=== PATIENT | male | born 1930 | race Caucasian/White ===

== ENCOUNTER 2018-11-26 12:15 | Inpatient (IN) | payer MEDICARE ==
[~2018-11-26] VITALS: Ht 175.3 cm; Wt 56.7 kg
[2018-11-26] VITALS (9 sets, daily range): BP systolic 142–173; BP diastolic 53–76
[2018-11-26 12:43] LABS: MCH 33.1 pg (26.0-34.0); MCHC 32.3 g/dL (31.0-37.0); MCV 102.6 fL (80.0-100.0); RDW 23.3 % (11.5-14.5); WBC 7.6 10x3/uL (4.8-10.8)
[2018-11-26 12:48] LABS: RBC 1.51 10x6/uL (4.20-6.10)
[2018-11-26 12:49] LABS: HEMATOCRIT 15.5 % (42.0-54.0)
[2018-11-26 12:50] LABS: PLATELET COUNT 10 10x3/uL (130-400)
[2018-11-26 12:59] LABS: ALKALINE PHOSPHATASE 125 U/L (46-116); ALT (SGPT) 14 U/L (10-68); BILIRUBIN - TOTAL 0.44 mg/dL (0.2-1.3); CALC OSMOLALITY 294 mosm/kg (275-300); CALCIUM 8.2 mg/dL (8.5-10.1); CARBON DIOXIDE 23.2 mmol/L (21.0-32.0); CHLORIDE - SERUM 109 mmol/L (98-107); CREATININE - SERUM 1.8 mg/dL (0.6-1.3); GLUCOSE 114 mg/dL (74-106); POTASSIUM - SERUM 4.1 mmol/L (3.5-5.1); PROTEIN - SERUM 7.7 g/dL (6.4-8.2); SODIUM 143 mmol/L (136-145); UREA NITROGEN 39 mg/dL (7-18); eGFR NON AFRICAN AMERICAN 38 mL/min (90-120)
[2018-11-26] MEDS ORDERED: CAPTOPRIL25 MG PO (13:07)
[2018-11-26] MEDS ORDERED: PLENDIL5 MG PO (13:07)
[2018-11-26 13:10] LABS: CKMB 0.5 U/L (0.0-3.6); CREATINE KINASE 40 UL (21-232)
[2018-11-26 13:12] LABS: TROPONIN-I 0.016 ng/mL (0.000-0.060)
[2018-11-26] MEDS ORDERED: LEVOXYL75 MCG PO (13:34)
[2018-11-26] MEDS ORDERED: OXYBUTYNIN CHLOR5 M1 PO (13:35)
--- NOTE | 2018-11-26 13:40 | NUR ---
OCCULT BLOOD TEST NEGATIVE.
[2018-11-26 13:42] LABS: LYMPHOCYTES 47 % (15-50); MONOCYTES 23 % (2-11); NEUTROPHILS 19 % (40-80)
[2018-11-26 13:43] LABS: ANISOCYTOSIS OCC; HYPOCHROMASIA OCC; PLATELET ESTIMATE DECREASED
--- NOTE | 2018-11-26 13:48 | NUR ---
FIRST UNIT OF BLOOD TRANSFUSION STARTED.
[2018-11-26 19:02] LABS: HEMATOCRIT 22.7 % (42.0-54.0); HEMOGLOBIN 7.6 g/dL (13.5-17.5)
[2018-11-26 19:16] LABS: % SATURATION 101 % (15-55); IRON 194 ug/dl (35-150); TOTAL IRON BIND CAPACITY 192 ug/dl (260-445)
[2018-11-27] VITALS (7 sets, daily range): BP systolic 127–169; BP diastolic 47–84; Ht 175.3 cm; Wt 56.7 kg
--- NOTE | 2018-11-27 00:08 | NUR ---
PT ARRIVED TO THE FLOOR. ALERT AND ORINETED. NO SIGNS OF DISTRESS. BREATHING EVEN AND UNLABORED. PT STATES NO PROBLEMS AT THIS TIME. BOWEL SOUNDS ACTIVE. SKIN CLEAN DRY AND INTACT. AT BEDSIDE. WILL CONTINUE PLAN OF CARE. CALL LIGHT IN REACH. BED LOWERED AND LOCKED. JONATHAN ALARM ON FOR FALL PROCATIONS.
--- NOTE | 2018-11-27 04:38 | NUR ---
I have reviewed this patient and I concur with the Shift Assessment completed by the Licensed Practical Nurse today this shift.
[2018-11-27 07:13] LABS: ANION GAP 11.5 mmol/L (8-16); CARBON DIOXIDE 23.7 mmol/L (21.0-32.0); CREATININE - SERUM 1.5 mg/dL (0.6-1.3); MAGNESIUM - SERUM 2.2 mg/dL (1.8-2.4); PHOSPHOROUS 3.6 mg/dL (2.5-4.9); POTASSIUM - SERUM 4.2 mmol/L (3.5-5.1)
[2018-11-27 07:25] LABS: MCH 32.5 pg (26.0-34.0); MCHC 33.7 g/dL (31.0-37.0); MEAN PLATELET VOLUME 9.9 fL (7.4-10.4); RBC 2.03 10x6/uL (4.20-6.10); RDW 22.4 % (11.5-14.5); WBC 6.1 10x3/uL (4.8-10.8)
[2018-11-27 07:29] LABS: MCV 96.6 fL (80.0-100.0)
[2018-11-27 07:30] LABS: PLATELET COUNT 117 10x3/uL (130-400)
[2018-11-27 07:31] LABS: HEMATOCRIT 19.6 % (42.0-54.0); HEMOGLOBIN 6.6 g/dL (13.5-17.5)
[2018-11-27 08:29] LABS: HYPOCHROMASIA 3+; LYMPHOCYTES 46 % (15-50); MONOCYTES 17 % (2-11); NEUTROPHILS 26 % (40-80); PLATELET ESTIMATE DECREASED
[2018-11-27 08:30] LABS: ANISOCYTOSIS 2+; ROULEAUX 2+
--- NOTE | 2018-11-27 10:04 | NUR ---
PT H&H STILL LOW, ORDERED 2 UNITS OF BLOOD PER TAHIRA AND STARTED FIRST UNIT, U/A ALSO ORDERED. PLACED URINAL IN ROOM AND ADVSIED SPOUSE WE WOULD NEED TO GET A SAMPLE AND TO NOT THROW OUT NEXT VOID, PT SPOUSE VOICED UNDERSTANDING. CONTINUE WITH PLAN OF CARE.
[2018-11-27 11:15] LABS: APPEARANCE CLEAR (CLEAR); BACTERIA MANY /hpf (NONE SEEN); BILIRUBIN NEGATIVE (NEGATIVE); COLOR STRAW (YELLOW); EPITHELIAL CELLS 0-5 /hpf (0-5); GLUCOSE NEGATIVE (NEGATIVE); KETONE NEGATIVE (NEGATIVE); NITRITE NEGATIVE (NEGATIVE); PROTEIN 2+ mg/dL (NEGATIVE); SPECIFIC GRAVITY 1.005 (1.005-1.020); UROBILINOGEN NORMAL (NORMAL)
--- NOTE | 2018-11-27 12:35 | NUR ---
STARTED PT 2ND UNIT OF BLOOD, PT IS AWAKE AND ORIENTED, EATING LUNCH, SON AT BEDSIDE, NO NEEDS VOICED, CONTINUE WITH PLAN OF CARE
[2018-11-27 16:31] LABS: HEMATOCRIT 30.1 % (42.0-54.0); HEMOGLOBIN 10.2 g/dL (13.5-17.5)
--- NOTE | 2018-11-27 18:45 | NUR ---
I have reviewed this patient and I concur with the Shift Assessment completed by the Licensed Practical Nurse today this shift.
--- NOTE | 2018-11-27 18:55 | NUR ---
I have reviewed this patient and I concur with the Shift Assessment completed by the Licensed Practical Nurse today this shift.
--- NOTE | 2018-11-27 20:00 | NUR ---
PT LYING IN BED RESTING WITH EYES CLOSED. AWAKENS TO VERBAL STIMULI. ORIENTED TO SELF. DENIES PAIN OR NEEDS. HAVING PRODUCTIVE COUGH WITH BROWN SPUTUM. LUNG SOUNDS CTA. AT BEDSIDE. BED ALARM. CL IN REACH, WILL CTM
[2018-11-27 23:31] LABS: HEMATOCRIT 27.4 % (42.0-54.0); HEMOGLOBIN 9.4 g/dL (13.5-17.5)
[2018-11-28] VITALS: BP 171/70
[2018-11-28 04:00] VITALS: BP 157/71
--- NOTE | 2018-11-28 04:03 | NUR ---
PT LYING IN BED ASLEEP WITHOUT DISTRESS. AT BEDSIDE, DENIES NEEDS. BED ALARM ON, CL IN REACH. WILL CTM
[2018-11-28 07:06] LABS: BASOPHILS 0.3 % (0-2); EOSINOPHILS 0.4 % (0-7); HEMATOCRIT 28.5 % (42.0-54.0); HEMOGLOBIN 9.6 g/dL (13.5-17.5); IMMATURE GRANULOCYTES 0.9 % (0-5); LYMPHOCYTES 47.4 % (15-50); MCH 30.1 pg (26.0-34.0); MCHC 33.7 g/dL (31.0-37.0); MEAN PLATELET VOLUME 9.6 fL (7.4-10.4); MONOCYTES 30.4 % (2-11); NEUTROPHILS 20.6 % (40-80); RDW 19.8 % (11.5-14.5); WBC 7.6 10x3/uL (4.8-10.8)
[2018-11-28 07:07] LABS: MCV 89.3 fL (80.0-100.0); PLATELET COUNT 64 10x3/uL (130-400); RBC 3.19 10x6/uL (4.20-6.10)
[2018-11-28 07:15] LABS: ALBUMIN 2.7 g/dL (3.4-5.0); BILIRUBIN - TOTAL 1.18 mg/dL (0.2-1.3); CARBON DIOXIDE 21.9 mmol/L (21.0-32.0); CREATININE - SERUM 1.5 mg/dL (0.6-1.3); POTASSIUM - SERUM 3.9 mmol/L (3.5-5.1); PROTEIN - SERUM 6.8 g/dL (6.4-8.2)
[2018-11-28 07:42] LABS: PLATELET ESTIMATE DECREASED
[2018-11-28 09:15] VITALS: BP 164/67
--- NOTE | 2018-11-28 10:27 | NUR ---
PT LYING IN BED, PT SPOUSE STATED HE HAD A RESTFUL NIGHT LAST NIGHT AND ATE A GOOD PART OF HIS BREAKFAST, WENT OVER LAB WORK WITH PATIENT AND SPOUSE AND EXPLAINED THAT WE HAVE ORDERS TO RRANSFUSE IF BLOOD GETS BELOW 8. NO NEEDS VOICED, WILL CONTINUE WITH PLAN OF CARE, CL IN REACH
[2018-11-28 12:35] LABS: HEMOGLOBIN 9.8 g/dL (13.5-17.5)
[2018-11-28 13:10] VITALS: BP 134/58
[2018-11-28 16:22] VITALS: BP 130/52
--- NOTE | 2018-11-28 18:00 | NUR ---
I have reviewed this patient and I concur with the Shift Assessment completed by the Licensed Practical Nurse today this shift.
[2018-11-28 18:07] LABS: HEMATOCRIT 27.5 % (42.0-54.0); HEMOGLOBIN 9.1 g/dL (13.5-17.5)
[2018-11-28 18:20] LABS: APTT 40.3 SECONDS (22.8-39.4); INR 1.3 (0.85-1.17); PROTIME 15.7 SECONDS (11.6-15.0)
--- NOTE | 2018-11-28 19:15 | NUR ---
PT ALERT BUT SLOW TO RESPOND TO QUESTIONS. WEAKNESS NOTED IN UPPER AND LOWER EXTREMEMTIES. ATTENDING CARE AT THIS TIME. BED CHANGED PROVIDED TO PATIENT DUE TO INCONTINENCE. NO IV ACCESS AT THIS TIME. BOTH AND PT DENY FURTHER ISSUES AT THIS TIME. CALL LIGHT IN REACH. CPOC.
[2018-11-28 20:00] VITALS: BP 148/66
[2018-11-29] VITALS: BP 149/65
[2018-11-29 01:16] LABS: HEMATOCRIT 26.8 % (42.0-54.0); HEMOGLOBIN 9.1 g/dL (13.5-17.5)
--- NOTE | 2018-11-29 03:52 | NUR ---
I have reviewed this patient and I concur with the Shift Assessment completed by the Licensed Practical Nurse today this shift.
[2018-11-29 04:00] VITALS: BP 151/63
[2018-11-29 05:47] LABS: HEMATOCRIT 28.2 % (42.0-54.0); HEMOGLOBIN 9.4 g/dL (13.5-17.5); MCH 29.9 pg (26.0-34.0); MCHC 33.3 g/dL (31.0-37.0); MCV 89.8 fL (80.0-100.0); MEAN PLATELET VOLUME 10.3 fL (7.4-10.4); PLATELET COUNT 54 10x3/uL (130-400); RBC 3.14 10x6/uL (4.20-6.10); RDW 19.2 % (11.5-14.5); WBC 6.8 10x3/uL (4.8-10.8)
[2018-11-29 06:08] LABS: ALBUMIN 2.5 g/dL (3.4-5.0); ANION GAP 12.3 mmol/L (8-16); BILIRUBIN - TOTAL 0.74 mg/dL (0.2-1.3); CARBON DIOXIDE 23.7 mmol/L (21.0-32.0); CREATININE - SERUM 1.6 mg/dL (0.6-1.3); PROTEIN - SERUM 6.5 g/dL (6.4-8.2)
--- NOTE | 2018-11-29 07:20 | NUR ---
PATIENT RESTING WITH EYES CLOSED, AT SIDE. PATIENT MADE NPO FOR BONE BIOPSY LATER TODAY. CL IN REACH, SR UP X2
[2018-11-29 07:38] LABS: APTT 43.7 SECONDS (22.8-39.4); INR 1.33 (0.85-1.17); PROTIME 15.9 SECONDS (11.6-15.0)
[2018-11-29 08:40] LABS: ANISOCYTOSIS OCC; LYMPHOCYTES 39 % (15-50); MONOCYTES 17 % (2-11); NEUTROPHILS 15 % (40-80); PLATELET ESTIMATE DECREASED
[2018-11-29 08:46] VITALS: BP 139/62
[2018-11-29 12:08] VITALS: BP 142/65
--- NOTE | 2018-11-29 13:16 | NUR ---
PATIENT STABLE FOLLOWING BONE BIOPSY. DENIES PAIN DRESSING C/D/I
[2018-11-29 14:25] LABS: HEMATOCRIT 27.3 % (42.0-54.0); HEMOGLOBIN 9.1 g/dL (13.5-17.5)
--- NOTE | 2018-11-29 15:18 | NUR ---
NUTRITION F/U SPOUSE AT BEDSIDE. REPORTS PT WITH GOOD INTAKE LATE LUNCH. PT HAD BEEN NPO FOR BIOPSY. WILL CONTINUE TO PROVIDE DIET, MONITOR PO INTAKE. RD FOLLOWING
[2018-11-29 18:09] LABS: HEMATOCRIT 29.3 % (42.0-54.0); HEMOGLOBIN 9.9 g/dL (13.5-17.5)
[2018-11-29 20:00] VITALS: BP 156/58
--- NOTE | 2018-11-29 20:00 | NUR ---
ASSESSMENT PER FLOWSHEET. IV PATENT LEFT FOREARM OF 1/2NS AT 30CC'S/HR SITE CLEAR. SR UP X2 CALL LIGHT WITHIN REACH AT BEDSIDE. TELM. SHOWS SR WITH HR 71.
--- NOTE | 2018-11-29 22:00 | NUR ---
INC URINE PULL UPS CHANGED.
--- NOTE | 2018-11-30 01:00 | NUR ---
LAB DRAWN FOR H&H.
[2018-11-30 01:15] LABS: HEMATOCRIT 26.5 % (42.0-54.0); HEMOGLOBIN 9.1 g/dL (13.5-17.5)
--- NOTE | 2018-11-30 01:41 | NUR ---
RESULTS OF H&H ARE 9.1/26.5. NO BLOOD NEEDED AT THIS TIME.
[2018-11-30 04:00] VITALS: BP 159/66
[2018-11-30 06:16] LABS: BASOPHILS 0.2 % (0-2); EOSINOPHILS 0.2 % (0-7); HEMATOCRIT 25.9 % (42.0-54.0); HEMOGLOBIN 8.7 g/dL (13.5-17.5); IMMATURE GRANULOCYTES 21.8 % (0-5); LYMPHOCYTES 38.9 % (15-50); MCH 30.2 pg (26.0-34.0); MCHC 33.6 g/dL (31.0-37.0); MCV 89.9 fL (80.0-100.0); MEAN PLATELET VOLUME 9.6 fL (7.4-10.4); MONOCYTES 14.9 % (2-11); RBC 2.88 10x6/uL (4.20-6.10); RDW 18.6 % (11.5-14.5); WBC 5.8 10x3/uL (4.8-10.8)
[2018-11-30 06:36] LABS: ALBUMIN 2.3 g/dL (3.4-5.0); ANION GAP 14.4 mmol/L (8-16); BILIRUBIN - TOTAL 0.62 mg/dL (0.2-1.3); CARBON DIOXIDE 23.7 mmol/L (21.0-32.0); CREATININE - SERUM 1.4 mg/dL (0.6-1.3); POTASSIUM - SERUM 4.1 mmol/L (3.5-5.1); PROTEIN - SERUM 6.4 g/dL (6.4-8.2)
[2018-11-30 06:43] LABS: PLATELET COUNT 34 10x3/uL (130-400)
--- NOTE | 2018-11-30 07:10 | NUR ---
AWAKENS INT. PT IS WITHOUT DISTRESS. AT BEDSIDE.MONITOR
[2018-11-30 08:36] VITALS: BP 164/66
--- NOTE | 2018-11-30 09:00 | NUR ---
ASSESSMENT PER FLOW SHEET. PT IS WITHOUT DISTRESS.MONITOR FOR NEEDS
[2018-11-30 12:47] LABS: HEMATOCRIT 26.5 % (42.0-54.0); HEMOGLOBIN 8.9 g/dL (13.5-17.5)
--- NOTE | 2018-11-30 13:15 | NUR ---
PLATELET INFUSION COMPLETE. VSS. SEE TRANSFUSION CARD. PT DENIES FURTHER NEEDS. BED IS IN THE LOWEST POSITION. CALL LIGHT AND BEDSIDE TABLE ARE WITHIN REACH.
--- NOTE | 2018-11-30 13:43 | NUR ---
OT NOTE: ATTEMPTED EVAL HOWEVER, PT JUST RECEIVING PLATELETTS. WILL RE ATTEMPT TOMORROW. MARTY JARAMILLO, OTR/L
--- NOTE | 2018-11-30 16:06 | NUR ---
PT REMAINS WITHOUT DISTRESS. FAMILY AT BEDSIDE.DENIES NEEDS.
--- NOTE | 2018-11-30 17:23 | NUR ---
REMAINS WITHOUT NEEDS. AT BEDSIDE
[2018-11-30 17:36] VITALS: BP 147/66
[2018-11-30 18:39] LABS: HEMATOCRIT 25.7 % (42.0-54.0); HEMOGLOBIN 8.8 g/dL (13.5-17.5)
[2018-11-30 20:00] VITALS: BP 141/57
--- NOTE | 2018-11-30 20:00 | NUR ---
ASSESSMENT PER FLOWSHEET. IV SALINE LOCKED TO LT FOREARM. TELM. SHOWS SR WITH HR 63-64. IN ROOM. BED ALARM ON.
--- NOTE | 2018-11-30 22:00 | NUR ---
INC URINE CLEANED AND DRIED. REPOSTIONED IN BED.
--- NOTE | 2018-12-01 00:08 | NUR ---
EYES CLOSED RESPIRATIONS WITH EASE AND UNLABORED.
[2018-12-01 04:00] VITALS: BP 163/74
--- NOTE | 2018-12-01 04:45 | NUR ---
AWAKE HID=692.2 TYLENOL 650MG PO GIVEN FOR FEVER MEASURES.
[2018-12-01 05:22] LABS: HEMATOCRIT 27.2 % (42.0-54.0); HEMOGLOBIN 9.2 g/dL (13.5-17.5); MCH 30.1 pg (26.0-34.0); MCHC 33.8 g/dL (31.0-37.0); MCV 88.9 fL (80.0-100.0); MEAN PLATELET VOLUME 9.9 fL (7.4-10.4); RBC 3.06 10x6/uL (4.20-6.10); RDW 18.4 % (11.5-14.5)
[2018-12-01 05:27] LABS: PLATELET COUNT 88 10x3/uL (130-400)
[2018-12-01 05:33] LABS: ALBUMIN 2.5 g/dL (3.4-5.0); ANION GAP 12.6 mmol/L (8-16); BILIRUBIN - TOTAL 0.65 mg/dL (0.2-1.3); CALCIUM 8.2 mg/dL (8.5-10.1); CARBON DIOXIDE 25.3 mmol/L (21.0-32.0); CREATININE - SERUM 1.4 mg/dL (0.6-1.3); POTASSIUM - SERUM 3.9 mmol/L (3.5-5.1); PROTEIN - SERUM 6.7 g/dL (6.4-8.2)
[2018-12-01 05:57] LABS: EOSINOPHILS 2 % (0-7); LYMPHOCYTES 65 % (15-50); MONOCYTES 3 % (2-11); NEUTROPHILS 23 % (40-80); PLATELET ESTIMATE DECREASED
--- NOTE | 2018-12-01 08:00 | NUR ---
PATIENT IN BED WITH EYES CLOSED RESTING QUIETLY. NO COMPLAINTS OR SIGNS OF DISTRESS. CALL LIGHT WITHIN REACH.
[2018-12-01 08:55] VITALS: BP 174/59
[2018-12-01 13:57] VITALS: BP 185/82
--- NOTE | 2018-12-01 14:14 | MORECARE ---
CASE MANAGEMENT DISCHARGE SUMMARY PATIENT: HELDER MACHUCA UNIT: [id number] ADM DATE: 11/26/18 AGE: 87 : [birth year] SEX: M ROOM/BED: D.2215 AUTHOR: SAMANTHA MERINO PHYSICIAN: REFERRING PHYSICIAN: TYLER SALMON MD DATE OF SERVICE: 12/01/18 Discharge Plan Patient Name: HELDER MACHUCA Facility: [facility]:[place] : 1930 Planned Disposition: Home with Home Health Anticipated Discharge Date: Discharge Date: Expected LOS: Initial Reviewer: [email or web address] Initial Review Date: 11/26/2018 Generated: 12/01/18 3:14 pm DCPIA - Discharge Planning Initial Assessment Updated by [email or web address]: Jennifer Troy on 12/01/18 2:12 pm * Is the patient Alert and Oriented? Yes * How many steps to enter\exit or inside your home? * PCP MARIO * [facility] * Preadmission Environment Home with Family * ADLs Partial Dependent * Partial ADLs (Assistance needed) Ambulation Bathing Medication Management * Equipment Rolling Walker Shower Chair * Other Equipment TRANSPORT CHAIR * List name and contact numbers for known caregivers / representatives who currently or will assist patient after discharge: ROB [phone] * Verbal permission to speak to the caregivers and representatives has been obtained from the patient. Yes * Community resources currently utilized Home Health * Please name any agencies selected above. [facility] * Additional services required to return to the preadmission environment? No * Can the patient safely return to the preadmission environment? Yes * Has this patient been hospitalized within the prior 30 days at any hospital? No Patient Name: HELDER MACHUCA Page [phone] at 1414 All edits/amendments must be made on the electronic document DICTATION DATE: 12/01/181412 PREDICTIVE MAINTENANCE TECHNICIAN: ARACELIS 12/01/181412 RPT#: [id number] DC DATE: STATUS: ADM IN [facility] [address] [place] [address] END OF REPORT
--- NOTE | 2018-12-01 14:23 | MORECARE ---
CASE MANAGEMENT DISCHARGE SUMMARY PATIENT: HELDER MACHUCA UNIT: [id number] ADM DATE: 11/26/18 AGE: 87 : [birth year] SEX: M ROOM/BED: D.2215 AUTHOR: WILBERDOC PHYSICIAN: REFERRING PHYSICIAN: TYLER SALMON MD DATE OF SERVICE: 12/01/18 Discharge Plan Patient Name: HELDER MACHUCA Facility: [facility]:[place] : 1930 Planned Disposition: Home with Home Health Anticipated Discharge Date: Discharge Date: Expected LOS: Initial Reviewer: [email or web address] Initial Review Date: 11/26/2018 Generated: 12/01/18 3:23 pm Comments DCP- Discharge Planning Updated by [email or web address]: Jennifer Troy on 12/01/18 1:[address] Patient Name: HELDER MACHUCA Admission Status: ER Accout number: [id number] Admission Date: 11-26-2018 : 1930 Admission Diagnosis:THROMBOCYTOPENIA, UNSPECIFIED Attending: TYLER PAYAN Current LOS: 5 Anticipated DC Date: Planned Disposition: Home with Home Health Primary Insurance: AETNA MEDICARE PPO or HMO Discharge Planning Comments: CM met with patient & Rob to complete initial dc planning assessment. CM educated patient on the CM role and verbal consent given by patient to complete assessment. Patient lives at home with his where he is partially dependent with medications, ambulation, and bathing. At discharge patient plans to return home and feels this is a safe discharge. CM discussed availability of home health, rehab services, and medical equipment. He is current with [facility] (KARINA signed) He has a walker, shower chair and walker. Patient denied known discharge needs at this time. CM will continue to follow and will assist as needed with dc plans/needs. Body Die Maker: Jennifer Troy DCPIA - Discharge Planning Initial Assessment Updated by [id number]: Jennifer Troy on 12/01/18 2:12 pm * Is the patient Alert and Oriented? Yes * How many steps to enter\exit or inside your home? * PCP MARIO * Pharmacy [facility] * Preadmission Environment Home with Family * ADLs Partial Dependent * Partial ADLs (Assistance needed) Ambulation Bathing Medication Management * Equipment Rolling Walker Shower Chair * Other Equipment TRANSPORT CHAIR * List name and contact numbers for known caregivers / representatives who currently or will assist patient after discharge: ROB [phone] * Verbal permission to speak to the caregivers and representatives has been obtained from the patient. Yes * Community resources currently utilized Home Health * Please name any agencies selected above. [facility] * Additional services required to return to the preadmission environment? No * Can the patient safely return to the preadmission environment? Yes * Has this patient been hospitalized within the prior 30 days at any hospital? No Coverage Notice Reviewer: [id number] Jessi Troy Notice Issued Date-Time: 12/01/2018 8:30 Notice Type: Patient Choice Letter Notice Delivered To: Patient Relationship to Patient: Spouse Surgery Manager Name: rob Delivery Method: - Tita Days: Prior Verbal Notification: Recipient Understood Notice: Yes Recipient Signature: Yes Med Rec Note Co-signed by Attending: Coverage Notice Comment: karina with leesa Last DP export: 12/01/18 1:14 p Patient Name: HELDER MACHUCA Page [phone] at 1423 All edits/amendments must be made on the electronic document DICTATION DATE: 12/01/181421 FURNACE PROCESS PLANT OPERATOR: ARACELIS 12/01/181421 RPT#: [id number] DC DATE: STATUS: ADM IN [facility] [address] [place] [address] END OF REPORT
--- NOTE | 2018-12-01 15:56 | NUR ---
OT NOTE: PT REQUIRED MAX A FOR BED MOB TASKS. PT COMPLETED EOB SITTING WITH MAX A. PT COMPLETED GROOMING AND HYGIENE TASKS WITH MOD/MAX A. THANK YOU, REX GIRARD
[2018-12-01 16:24] VITALS: BP 192/64
--- NOTE | 2018-12-01 16:31 | MORECARE ---
CASE MANAGEMENT DISCHARGE SUMMARY PATIENT: HELDER MACHUCA UNIT: [id number] ADM DATE: 11/26/18 AGE: 87 : [birth year] SEX: M ROOM/BED: D.2215 AUTHOR: WILBERDOC PHYSICIAN: REFERRING PHYSICIAN: TYLER SALMON MD DATE OF SERVICE: 12/01/18 Discharge Plan Patient Name: HELDER MACHUCA Facility: [facility]:[place] : 1930 Planned Disposition: Home with Home Health Anticipated Discharge Date: Discharge Date: Expected LOS: Initial Reviewer: [email or web address] Initial Review Date: 11/26/2018 Generated: 12/01/18 5:30 pm Comments DCP- Discharge Planning Updated by [id number]: Jennifer Troy on 12/01/18 1:[address] Patient Name: HELDER MACHUCA Admission Status: ER Accout number: [id number] Admission Date: 11-26-2018 : 1930 Admission Diagnosis:THROMBOCYTOPENIA, UNSPECIFIED Attending: TYLER PAYAN Current LOS: 5 Anticipated DC Date: Planned Disposition: Home with Home Health Primary Insurance: AETNA MEDICARE PPO or HMO Discharge Planning Comments: CM met with patient & Rob to complete initial dc planning assessment. CM educated patient on the CM role and verbal consent given by patient to complete assessment. Patient lives at home with his where he is partially dependent with medications, ambulation, and bathing. At discharge patient plans to return home and feels this is a safe discharge. CM discussed availability of home health, rehab services, and medical equipment. He is current with [facility] (KARINA signed) He has a walker, shower chair and walker. Patient denied known discharge needs at this time. CM will continue to follow and will assist as needed with dc plans/needs. Arrt Technologist: Jennifer Troy DCPIA - Discharge Planning Initial Assessment Updated by [email or web address]: Jennifer Troy on 12/01/18 2:12 pm * Is the patient Alert and Oriented? Yes * How many steps to enter\exit or inside your home? * PCP MARIO * Pharm[facility] * Preadmission Environment Home with Family * ADLs Partial Dependent * Partial ADLs (Assistance needed) Ambulation Bathing Medication Management * Equipment Rolling Walker Shower Chair * Other Equipment TRANSPORT CHAIR * List name and contact numbers for known caregivers / representatives who currently or will assist patient after discharge: ROB [phone] * Verbal permission to speak to the caregivers and representatives has been obtained from the patient. Yes * Community resources currently utilized Home Health * Please name any agencies selected above. [facility] * Additional services required to return to the preadmission environment? No * Can the patient safely return to the preadmission environment? Yes * Has this patient been hospitalized within the prior 30 days at any hospital? No External Providers External Provider: [facility] Next Contact Date: Service Request Date: Service Type: Resolution: Reviewer: Comments: Coverage Notice Reviewer: [id number] Jessi Troy Notice Issued Date-Time: 12/01/2018 8:30 Notice Type: Patient Choice Letter Notice Delivered To: Patient Relationship to Patient: Spouse Claims Administrator Name: rob Delivery Method: - Tita Days: Prior Verbal Notification: Recipient Understood Notice: Yes Recipient Signature: Yes Med Rec Note Co-signed by Attending: Coverage Notice Comment: karina with leesa Last DP export: 12/01/18 1:23 p Patient Name: HELDER MACHUCA Page [phone] at 1631 All edits/amendments must be made on the electronic document DICTATION DATE: 12/01/18 1630 BOBBIN WINDER TENDER: ARACELIS 12/01/18 1630 RPT#: [id number] DC DATE: STATUS: ADM IN [facility] [address] [place] [address] END OF REPORT
--- NOTE | 2018-12-01 16:38 | MORECARE ---
CASE MANAGEMENT DISCHARGE SUMMARY PATIENT: HELDER MACHUCA UNIT: [id number] ADM DATE: 11/26/18 AGE: 87 : [birth year] SEX: M ROOM/BED: D.2215 AUTHOR: SAMANTHA MERINO PHYSICIAN: REFERRING PHYSICIAN: TYLER SALMON MD DATE OF SERVICE: 12/01/18 Discharge Plan Patient Name: HELDER MACHUCA Facility: [facility]:[place] : 1930 Planned Disposition: Home with Home Health Anticipated Discharge Date: Discharge Date: Expected LOS: Initial Reviewer: [email or web address] Initial Review Date: 11/26/2018 Generated: 12/01/18 5:38 pm Comments DCP- Discharge Planning Updated by [email or web address]: Jennifer Troy on 12/01/18 3:[address] ORDER RECEIVED FOR HOSPICE CONSULT, SPOKE WITH PATIENT'S AND SON AT LENGTH AND THEY WOULD LIKE TO USE [facility] AND GO HOME WITH [facility]. KARINA SIGNED AND PLACED IN CHART. I CALLED [facility] AND SENT THE REFERRAL, THE FAMILY WOULD LIKE TO MEET TOMORROW 12/02 @ 0900 AM. [facility] WILL BE HERE TOMORROW AND VISIT WITH FAMILY. CM TO FOLLOW AND ASSIST WITH DC PLANNING DCP- Discharge Planning Updated by [email or web address]: Jennifer Troy on 12/01/18 1:[address] Patient Name: HELDER MACHUCA Admission Status: ER Accout number: [id number] Admission Date: 11-26-2018 : 1930 Admission Diagnosis:THROMBOCYTOPENIA, UNSPECIFIED Attending: TYLER PAYAN Current LOS: 5 Anticipated DC Date: Planned Disposition: Home with Home Health Primary Insurance: AETNA MEDICARE PPO or HMO Discharge Planning Comments: CM met with patient & Rob to complete initial dc planning assessment. CM educated patient on the CM role and verbal consent given by patient to complete assessment. Patient lives at home with his where he is partially dependent with medications, ambulation, and bathing. At discharge patient plans to return home and feels this is a safe discharge. CM discussed availability of home health, rehab services, and medical equipment. He is current with [facility] (KARINA signed) He has a walker, shower chair and walker. Patient denied known discharge needs at this time. CM will continue to follow and will assist as needed with dc plans/needs. Service Desk Agent: Jennifer Troy DCPIA - Discharge Planning Initial Assessment Updated by [email or web address]: Jennifer Troy on 12/01/18 2:12 pm * Is the patient Alert and Oriented? Yes * How many steps to enter\exit or inside your home? * PCP MARIO * [facility] * Preadmission Environment Home with Family * ADLs Partial Dependent * Partial ADLs (Assistance needed) Ambulation Bathing Medication Management * Equipment Rolling Walker Shower Chair * Other Equipment TRANSPORT CHAIR * List name and contact numbers for known caregivers / representatives who currently or will assist patient after discharge: ROB [phone] * Verbal permission to speak to the caregivers and representatives has been obtained from the patient. Yes * Community resources currently utilized Home Health * Please name any agencies selected above. [facility] * Additional services required to return to the preadmission environment? No * Can the patient safely return to the preadmission environment? Yes * Has this patient been hospitalized within the prior 30 days at any hospital? No External Providers External Provider: [facility] *(provides in[facility] Next Contact Date: Service Request Date: Service Type: Resolution: Reviewer: Comments: Coverage Notice Reviewer: [id number] Jessi Troy Notice Issued Date-Time: 12/01/2018 8:30 Notice Type: Patient Choice Letter Notice Delivered To: Patient Relationship to Patient: Spouse Medical Management Specialist Name: rob Delivery Method: - Tita Days: Prior Verbal Notification: Recipient Understood Notice: Yes Recipient Signature: Yes Med Rec Note Co-signed by Attending: Coverage Notice Comment: karina with [place] Reviewer: [id number] - Jennifer Troy Notice Issued Date-Time: 12/01/2018 16:15 Notice Type: Patient Choice Letter Notice Delivered To: Family Member Relationship to Patient: Spouse Medical Management Specialist Name: ROB Delivery Method: - Tita Days: Prior Verbal Notification: Recipient Understood Notice: Recipient Signature: Med Rec Note Co-signed by Attending: Coverage Notice Comment: Last DP export: 12/01/18 3:31 p Patient Name: HELDER MACHUCA Page [id number] at 1638 All edits/amendments must be made on the electronic document DICTATION DATE: 12/01/181637 KILN FIRER HELPER: ARACELIS 12/01/181637 RPT#: [id number] DC DATE: STATUS: ADM IN [facility] [address] [place] [address] END OF REPORT
--- NOTE | 2018-12-01 18:22 | NUR ---
PATIENT IN BED WITH EYES CLOSED RESTING QUIETLY. IV INTACT. BED ALARM ON. FAMILY AT BEDSIDE. CALL LIGHT WITHIN REACH.
--- NOTE | 2018-12-01 20:00 | NUR ---
ASSESSMENT PER FLOWSHEET. IN ROOM SALINE LOCK TO LT FOREARM. JONATHAN MAT IN PLACE INC URINE LINENS CHANGED.
[2018-12-01 21:15] VITALS: BP 147/67
--- NOTE | 2018-12-01 21:42 | NUR ---
WUCL=036.2 TYLENOL 650MG PO GIVEN FOR ELEVATED TEMP.
--- NOTE | 2018-12-01 23:52 | NUR ---
EYES CLOSED RESPIRATIONS WITH EASE AND UNLABORED.
[2018-12-02 01:38] VITALS: BP 154/60
[2018-12-02 05:11] VITALS: BP 124/80
[2018-12-02 05:35] LABS: ALBUMIN 2.4 g/dL (3.4-5.0); ANION GAP 13.1 mmol/L (8-16); BILIRUBIN - TOTAL 0.52 mg/dL (0.2-1.3); CALCIUM 8.2 mg/dL (8.5-10.1); CARBON DIOXIDE 24.8 mmol/L (21.0-32.0); CREATININE - SERUM 1.6 mg/dL (0.6-1.3); POTASSIUM - SERUM 3.9 mmol/L (3.5-5.1); PROTEIN - SERUM 6.7 g/dL (6.4-8.2)
[2018-12-02 06:32] LABS: BASOPHILS 0.2 % (0-2); EOSINOPHILS 0.6 % (0-7); IMMATURE GRANULOCYTES 1.6 % (0-5); LYMPHOCYTES 53.1 % (15-50); MCH 29.8 pg (26.0-34.0); MCHC 33.3 g/dL (31.0-37.0); MCV 89.4 fL (80.0-100.0); MEAN PLATELET VOLUME 10.4 fL (7.4-10.4); MONOCYTES 33.1 % (2-11); NEUTROPHILS 11.4 % (40-80); RBC 3.02 10x6/uL (4.20-6.10); RDW 18.4 % (11.5-14.5)
[2018-12-02 06:35] LABS: PLATELET COUNT 64 10x3/uL (130-400)
--- NOTE | 2018-12-02 07:44 | NUR ---
PT RESTING IN BED. CHEST RISING AND FALLING. AT BEDSIDE. NO S/S OF ACUTE DISTRESS. CL IN PLACE.
[2018-12-02 08:30] VITALS: BP 171/77
--- NOTE | 2018-12-02 08:45 | NUR ---
CHANGED AND TURNED PT TO R SIDE. PT IN WANTING TO WORK WITH PT. PT UP TO CHAIR. AT BEDSIDE. NO S/S OF ACUTE DISTRESS. CL IN PLACE.
--- NOTE | 2018-12-02 10:55 | MORECARE ---
CASE MANAGEMENT DISCHARGE SUMMARY PATIENT: HELDER MACHUCA UNIT: [id number] ADM DATE: 11/26/18 AGE: 87 : [birth year] SEX: M ROOM/BED: D.2215 AUTHOR: WILBER,SAMANTHA PHYSICIAN: REFERRING PHYSICIAN: TYLER SALMON MD DATE OF SERVICE: 12/02/18 Discharge Plan Patient Name: HELDER MACHUCA Facility: [facility]:[place] : 1930 Planned Disposition: Home with Home Health Anticipated Discharge Date: Discharge Date: Expected LOS: Initial Reviewer: [email or web address] Initial Review Date: 11/26/2018 Generated: 12/02/18 11:55 am Comments DCP- Discharge Planning Updated by [email or web address]: Jennifer Troy on 12/02/18 9:[address] Ez with [facility] has met with family and they will accept him. They are getting DME set up at the home and when that is done she will call me for a DC order. CM to follow and assist as needed DCP- Discharge Planning Updated by [email or web address]: Jennifer Troy on 12/01/18 3:[address] ORDER RECEIVED FOR HOSPICE CONSULT, SPOKE WITH PATIENT'S AND SON AT LENGTH AND THEY WOULD LIKE TO USE [facility] AND GO HOME WITH [facility]. KARINA SIGNED AND PLACED IN CHART. I CALLED [facility] AND SENT THE REFERRAL, THE FAMILY WOULD LIKE TO MEET TOMORROW 12/02 @ 0900 AM. [facility] WILL BE HERE TOMORROW AND VISIT WITH FAMILY. CM TO FOLLOW AND ASSIST WITH DC PLANNING DCP- Discharge Planning Updated by [id number]: Jennifer Troy on 12/01/18 1:[address] Patient Name: HELDER MACHUCA Admission Status: ER Accout number: [id number] Admission Date: 11-26-2018 : 1930 Admission Diagnosis:THROMBOCYTOPENIA, UNSPECIFIED Attending: TYLER PAYAN Current LOS: 5 Anticipated DC Date: Planned Disposition: Home with Home Health Primary Insurance: AETNA MEDICARE PPO or HMO Discharge Planning Comments: CM met with patient & Rob to complete initial dc planning assessment. CM educated patient on the CM role and verbal consent given by patient to complete assessment. Patient lives at home with his where he is partially dependent with medications, ambulation, and bathing. At discharge patient plans to return home and feels this is a safe discharge. CM discussed availability of home health, rehab services, and medical equipment. He is current with [facility] (KARINA signed) He has a walker, shower chair and walker. Patient denied known discharge needs at this time. CM will continue to follow and will assist as needed with dc plans/needs. Cigar Head Pegger: Jennifer Troy DCPIA - Discharge Planning Initial Assessment Updated by [id number]: Jennifer Troy on 12/01/18 2:12 pm * Is the patient Alert and Oriented? Yes * How many steps to enter\exit or inside your home? * PCP MARIO * [facility] * Preadmission Environment Home with Family * ADLs Partial Dependent * Partial ADLs (Assistance needed) Ambulation Bathing Medication Management * Equipment Rolling Walker Shower Chair * Other Equipment TRANSPORT CHAIR * List name and contact numbers for known caregivers / representatives who currently or will assist patient after discharge: ROB [phone] * Verbal permission to speak to the caregivers and representatives has been obtained from the patient. Yes * Community resources currently utilized Home Health * Please name any agencies selected above. [facility] * Additional services required to return to the preadmission environment? No * Can the patient safely return to the preadmission environment? Yes * Has this patient been hospitalized within the prior 30 days at any hospital? No Coverage Notice Reviewer: [email or web address] Jessi Troy Notice Issued Date-Time: 12/01/2018 8:30 Notice Type: Patient Choice Letter Notice Delivered To: Patient Relationship to Patient: Spouse Boiler Service Technician Name: rob Delivery Method: - Tita Days: Prior Verbal Notification: Recipient Understood Notice: Yes Recipient Signature: Yes Med Rec Note Co-signed by Attending: Coverage Notice Comment: kairna with leesa Reviewer: [id number] Jessi Troy Notice Issued Date-Time: 12/01/2018 16:15 Notice Type: Patient Choice Letter Notice Delivered To: Family Member Relationship to Patient: Spouse Boiler Service Technician Name: ROB Delivery Method: - Tita Days: Prior Verbal Notification: Recipient Understood Notice: Recipient Signature: Med Rec Note Co-signed by Attending: Coverage Notice Comment: Last DP export: 12/01/18 3:38 p Patient Name: HELDER MACHUCA Page 47049 at 1055 All edits/amendments must be made on the electronic document DICTATION DATE: 12/02/18 1055 ECONOMIC DEVELOPMENT SPECIALIST: ARACELIS 12/02/18 1055 RPT#: [id number] DC DATE: STATUS: ADM IN [facility] [address] [place] [address] END OF REPORT
--- NOTE | 2018-12-02 11:24 | NUR ---
OT NOTE: PT VERY WEAK; ATTEMPTING TO FEED PT THIS MORNING STATING THAT HE WONT EAT UNLESS SHE HELPS HIM. ASSISTED PT TO EOB WITH MAX ASSIST; MOD/MAX ASSIST WITH STATIC SITTING BALANCE AND SCOOTING TO EOB; MAX ASSIST TO GERALD SOCK; MAX ASSIST FOR TRANSFER FROM BED TO CHAIR. POSITIONED PT FOR COMFORT. MARTY JARAMILLO, OTR/L
[2018-12-02 13:34] VITALS: BP 157/55
--- NOTE | 2018-12-02 13:50 | MORECARE ---
CASE MANAGEMENT DISCHARGE SUMMARY PATIENT: HELDER MACHUCA UNIT: [id number] ADM DATE: 11/26/18 AGE: 87 : [birth year] SEX: M ROOM/BED: D.2215 AUTHOR: SAMANTHA MERINO PHYSICIAN: REFERRING PHYSICIAN: TYLER SALMON MD DATE OF SERVICE: 12/02/18 Discharge Plan Patient Name: HELDER MACHUCA Facility: [facility]:[place] : 1930 Planned Disposition: Home with Home Health Anticipated Discharge Date: Discharge Date: Expected LOS: Initial Reviewer: [id number] Initial Review Date: 11/26/2018 Generated: 12/02/18 2:50 pm Comments DCP- Discharge Planning Updated by [email or web address]: Jennifer Troy on 12/02/18 9:[address] Ez with [facility] has met with family and they will accept him. They are getting DME set up at the home and when that is done she will call me for a DC order. CM to follow and assist as needed DCP- Discharge Planning Updated by [email or web address]: Jennifer Troy on 12/01/18 3:[address] ORDER RECEIVED FOR HOSPICE CONSULT, SPOKE WITH PATIENT'S AND SON AT LENGTH AND THEY WOULD LIKE TO USE [facility] AND GO HOME WITH [facility]. KARINA SIGNED AND PLACED IN CHART. I CALLED [facility] AND SENT THE REFERRAL, THE FAMILY WOULD LIKE TO MEET TOMORROW 12/02 @ 0900 AM. [facility] WILL BE HERE TOMORROW AND VISIT WITH FAMILY. CM TO FOLLOW AND ASSIST WITH DC PLANNING DCP- Discharge Planning Updated by [id number]: Jennifer Troy on 12/01/18 1:[address] Patient Name: HELDER MACHUCA Admission Status: ER Accout number: [id number] Admission Date: 11-26-2018 : 1930 Admission Diagnosis:THROMBOCYTOPENIA, UNSPECIFIED Attending: TYLER PAYAN Current LOS: 5 Anticipated DC Date: Planned Disposition: Home with Home Health Primary Insurance: AETNA MEDICARE PPO or HMO Discharge Planning Comments: CM met with patient & Rob to complete initial dc planning assessment. CM educated patient on the CM role and verbal consent given by patient to complete assessment. Patient lives at home with his where he is partially dependent with medications, ambulation, and bathing. At discharge patient plans to return home and feels this is a safe discharge. CM discussed availability of home health, rehab services, and medical equipment. He is current with [facility] (KARINA signed) He has a walker, shower chair and walker. Patient denied known discharge needs at this time. CM will continue to follow and will assist as needed with dc plans/needs. Sand Analyst: Jennifer Troy DCPIA - Discharge Planning Initial Assessment Updated by [id number]: Jennifer Troy on 12/01/18 2:12 pm * Is the patient Alert and Oriented? Yes * How many steps to enter\exit or inside your home? * PCP MARIO * Pharmacy [facility] * Preadmission Environment Home with Family * ADLs Partial Dependent * Partial ADLs (Assistance needed) Ambulation Bathing Medication Management * Equipment Rolling Walker Shower Chair * Other Equipment TRANSPORT CHAIR * List name and contact numbers for known caregivers / representatives who currently or will assist patient after discharge: ROB [phone] * Verbal permission to speak to the caregivers and representatives has been obtained from the patient. Yes * Community resources currently utilized Home Health * Please name any agencies selected above. [facility] * Additional services required to return to the preadmission environment? No * Can the patient safely return to the preadmission environment? Yes * Has this patient been hospitalized within the prior 30 days at any hospital? No Coverage Notice Reviewer: [id number] Jessi Troy Notice Issued Date-Time: 12/01/2018 8:30 Notice Type: Patient Choice Letter Notice Delivered To: Patient Relationship to Patient: Spouse V Belt Mold Assembler And Curer Name: rob Delivery Method: - Tita Days: Prior Verbal Notification: Recipient Understood Notice: Yes Recipient Signature: Yes Med Rec Note Co-signed by Attending: Coverage Notice Comment: karina with leesa Reviewer: [id number] Jessi Troy Notice Issued Date-Time: 12/01/2018 16:15 Notice Type: Patient Choice Letter Notice Delivered To: Family Member Relationship to Patient: Spouse V Belt Mold Assembler And Curer Name: ROB Delivery Method: - Tita Days: Prior Verbal Notification: Recipient Understood Notice: Recipient Signature: Med Rec Note Co-signed by Attending: Coverage Notice Comment: Reviewer: [id number] - Jennifer Troy Notice Issued Date-Time: 12/02/2018 13:40 Notice Type: IM Discharge Notice Notice Delivered To: Family Member Relationship to Patient: Spouse V Belt Mold Assembler And Curer Name: rob Delivery Method: HAND - Hand Delivered Tita Days: Prior Verbal Notification: Recipient Understood Notice: Yes Recipient Signature: Yes Med Rec Note Co-signed by Attending: Coverage Notice Comment: Last DP export: 12/02/18 9:55 am Patient Name: HELDER MACHUCA Page [id number] at 1350 All edits/amendments must be made on the electronic document DICTATION DATE: 12/02/18 1349 SQL SERVER BI DEVELOPER: ARACELIS 12/02/18 1349 RPT#: [id number] DC DATE: STATUS: ADM IN [facility] [address] [place] [address] END OF REPORT
--- NOTE | 2018-12-02 14:00 | MORECARE ---
CASE MANAGEMENT DISCHARGE SUMMARY PATIENT: HELDER MACHUCA UNIT: [id number] ADM DATE: 11/26/18 AGE: 87 : [birth year] SEX: M ROOM/BED: D.2215 AUTHOR: WILBER,DOC PHYSICIAN: REFERRING PHYSICIAN: TYLER SALMON MD DATE OF SERVICE: 12/02/18 Discharge Plan Patient Name: HELDER MACHUCA Facility: [facility]:[place] : 1930 Planned Disposition: Home with Home Health Anticipated Discharge Date: Discharge Date: Expected LOS: Initial Reviewer: [email or web address] Initial Review Date: 11/26/2018 Generated: 12/02/18 3:00 pm Comments DCP- Discharge Planning Updated by [email or web address]: Jennifer Troy on 12/02/18 12:[address] PATIENT WILL BE DISCHARGING HOME WITH [facility] HE WILL TRANSPORT VIA EMS. AT BEDSIDE AND IS AWARE, DME IS SET UP AND DELIVERED TO THE HOME. IMM WAS EXPLAINED AND COPY GIVEN TO . CM WILL CONTINUE TO FOLLOW AND ASSIST NEEDED. DCP- Discharge Planning Updated by [email or web address]: Jennifer Troy on 12/02/18 9:[address] Ez with [facility] has met with family and they will accept him. They are getting DME set up at the home and when that is done she will call me for a DC order. CM to follow and assist as needed DCP- Discharge Planning Updated by [id number]: Jennifer Troy on 12/01/18 3:[address] ORDER RECEIVED FOR HOSPICE CONSULT, SPOKE WITH PATIENT'S AND SON AT LENGTH AND THEY WOULD LIKE TO USE [facility] AND GO HOME WITH [facility]. KARINA SIGNED AND PLACED IN CHART. I CALLED [facility] AND SENT THE REFERRAL, THE FAMILY WOULD LIKE TO MEET TOMORROW 12/02 @ 0900 AM. [facility] WILL BE HERE TOMORROW AND VISIT WITH FAMILY. CM TO FOLLOW AND ASSIST WITH DC PLANNING DCP- Discharge Planning Updated by [id number]: Jennifer Troy on 12/01/18 1:[address] Patient Name: HELDER MACHUCA Admission Status: ER Accout number: [id number] Admission Date: 11-26-2018 : 1930 Admission Diagnosis:THROMBOCYTOPENIA, UNSPECIFIED Attending: TYLER PAYAN Current LOS: 5 Anticipated DC Date: Planned Disposition: Home with Home Health Primary Insurance: AETNA MEDICARE PPO or HMO Discharge Planning Comments: CM met with patient & Rob to complete initial dc planning assessment. CM educated patient on the CM role and verbal consent given by patient to complete assessment. Patient lives at home with his where he is partially dependent with medications, ambulation, and bathing. At discharge patient plans to return home and feels this is a safe discharge. CM discussed availability of home health, rehab services, and medical equipment. He is current with [facility] (KARINA signed) He has a walker, shower chair and walker. Patient denied known discharge needs at this time. CM will continue to follow and will assist as needed with dc plans/needs. Grassroots Organizer: Jennifer Troy DCPIA - Discharge Planning Initial Assessment Updated by [email or web address]: Jennifer Troy on 12/01/18 2:12 pm * Is the patient Alert and Oriented? Yes * How many steps to enter\exit or inside your home? * PCP MARIO * Pharmacy [facility] * Preadmission Environment Home with Family * ADLs Partial Dependent * Partial ADLs (Assistance needed) Ambulation Bathing Medication Management * Equipment Rolling Walker Shower Chair * Other Equipment TRANSPORT CHAIR * List name and contact numbers for known caregivers / representatives who currently or will assist patient after discharge: ROB [phone] * Verbal permission to speak to the caregivers and representatives has been obtained from the patient. Yes * Community resources currently utilized Home Health * Please name any agencies selected above. [facility] * Additional services required to return to the preadmission environment? No * Can the patient safely return to the preadmission environment? Yes * Has this patient been hospitalized within the prior 30 days at any hospital? No Coverage Notice Reviewer: [id number] - Jennifer Troy Notice Issued Date-Time: 12/01/2018 8:30 Notice Type: Patient Choice Letter Notice Delivered To: Patient Relationship to Patient: Spouse Commanding Officer Garage Name: rob Delivery Method: - Tita Days: Prior Verbal Notification: Recipient Understood Notice: Yes Recipient Signature: Yes Med Rec Note Co-signed by Attending: Coverage Notice Comment: karina with [facility] Reviewer: [id number] Jessi Troy Notice Issued Date-Time: 12/01/2018 16:15 Notice Type: Patient Choice Letter Notice Delivered To: Family Member Relationship to Patient: Spouse Commanding Officer Garage Name: ROB Delivery Method: - Tita Days: Prior Verbal Notification: Recipient Understood Notice: Recipient Signature: Med Rec Note Co-signed by Attending: Coverage Notice Comment: Reviewer: [id number] Jessi Troy Notice Issued Date-Time: 12/02/2018 13:40 Notice Type: IM Discharge Notice Notice Delivered To: Family Member Relationship to Patient: Spouse Commanding Officer Garage Name: rob Delivery Method: HAND - Hand Delivered Tita Days: Prior Verbal Notification: Recipient Understood Notice: Yes Recipient Signature: Yes Med Rec Note Co-signed by Attending: Coverage Notice Comment: Last DP export: 12/02/18 12:50 pm Patient Name: HELDER MACHUCA Page [phone] at 1400 All edits/amendments must be made on the electronic document DICTATION DATE: 12/02/18 1359 TUBER MACHINE OPERATOR HELPER: ARACELIS 12/02/18 1359 RPT#: [id number] DC DATE: STATUS: ADM IN [facility] [address] [place] [address] END OF REPORT
--- NOTE | 2018-12-02 20:05 | NUR ---
OT NOTE: PT UPRIGHT IN CHAIR . PT REQUIRED MAX A FOR CHAIR TO BED TSF. PT COMPLETED BED MOB WITH MAX A. PT COMPLETED SIMPLE FACE WASH WITH MIN A. THANK YOU, REX GIRARD
--- NOTE | 2018-12-06 11:36 | MORECARE ---
CASE MANAGEMENT DISCHARGE SUMMARY PATIENT: HELDER MACHUCA UNIT: [id number] ADM DATE: 11/26/18 AGE: 87 : [birth year] SEX: M ROOM/BED: D.2215 AUTHOR: WILBER,DOC PHYSICIAN: REFERRING PHYSICIAN: TYLER SALMON MD DATE OF SERVICE: 12/06/18 Discharge Plan Patient Name: HELDER MACHUCA Facility: [facility]:[place] : 1930 Planned Disposition: Home with Home Health Anticipated Discharge Date: Discharge Date: 12/02/2018 Expected LOS: 0 Initial Reviewer: [id number] Initial Review Date: 11/26/2018 Generated: 12/06/18 12:36 pm Comments DCP- Discharge Planning Updated by [email or web address]: Jennifer Troy on 12/02/18 12:[address] PATIENT WILL BE DISCHARGING HOME WITH [facility] HE WILL TRANSPORT VIA EMS. AT BEDSIDE AND IS AWARE, DME IS SET UP AND DELIVERED TO THE HOME. IMM WAS EXPLAINED AND COPY GIVEN TO . CM WILL CONTINUE TO FOLLOW AND ASSIST NEEDED. DCP- Discharge Planning Updated by [id number]: Jennifer Troy on 12/02/18 9:[address] Ez with [facility] has met with family and they will accept him. They are getting DME set up at the home and when that is done she will call me for a DC order. CM to follow and assist as needed DCP- Discharge Planning Updated by [id number]: Jennifer Troy on 12/01/18 3:[address] ORDER RECEIVED FOR HOSPICE CONSULT, SPOKE WITH PATIENT'S AND SON AT LENGTH AND THEY WOULD LIKE TO USE [facility] AND GO HOME WITH [facility]. KARINA SIGNED AND PLACED IN CHART. I CALLED [facility] AND SENT THE REFERRAL, THE FAMILY WOULD LIKE TO MEET TOMORROW 12/02 @ 0900 AM. [facility] WILL BE HERE TOMORROW AND VISIT WITH FAMILY. CM TO FOLLOW AND ASSIST WITH DC PLANNING DCP- Discharge Planning Updated by [id number]: Jennifer Troy on 12/01/18 1:[address] Patient Name: HUGHIE DUNNAHOE Admission Status: ER Accout number: [id number] Admission Date: 11-26-2018 : 1930 Admission Diagnosis:THROMBOCYTOPENIA, UNSPECIFIED Attending: TYLER PAYAN Current LOS: 5 Anticipated DC Date: Planned Disposition: Home with Home Health Primary Insurance: AETNA MEDICARE PPO or HMO Discharge Planning Comments: CM met with patient & Rob to complete initial dc planning assessment. CM educated patient on the CM role and verbal consent given by patient to complete assessment. Patient lives at home with his where he is partially dependent with medications, ambulation, and bathing. At discharge patient plans to return home and feels this is a safe discharge. CM discussed availability of home health, rehab services, and medical equipment. He is current with [facility] (KARINA signed) He has a walker, shower chair and walker. Patient denied known discharge needs at this time. CM will continue to follow and will assist as needed with dc plans/needs. Barrel Brander: Jennifer Troy DCPIA - Discharge Planning Initial Assessment Updated by [email or web address]: Jennifer Troy on 12/01/18 2:12 pm * Is the patient Alert and Oriented? Yes * How many steps to enter\exit or inside your home? * PCP MARTIN * Pharmacy [facility] * Preadmission Environment Home with Family * ADLs Partial Dependent * Partial ADLs (Assistance needed) Ambulation Bathing Medication Management * Equipment Rolling Walker Shower Chair * Other Equipment TRANSPORT CHAIR * List name and contact numbers for known caregivers / representatives who currently or will assist patient after discharge: ROB [phone] * Verbal permission to speak to the caregivers and representatives has been obtained from the patient. Yes * Community resources currently utilized Home Health * Please name any agencies selected above. [facility] * Additional services required to return to the preadmission environment? No * Can the patient safely return to the preadmission environment? Yes * Has this patient been hospitalized within the prior 30 days at any hospital? No Coverage Notice Reviewer: [id number] - Jennifer Troy Notice Issued Date-Time: 12/01/2018 8:30 Notice Type: Patient Choice Letter Notice Delivered To: Patient Relationship to Patient: Spouse Carton Packaging Machine Operator Name: rob Delivery Method: - Tita Days: Prior Verbal Notification: Recipient Understood Notice: Yes Recipient Signature: Yes Med Rec Note Co-signed by Attending: Coverage Notice Comment: karina with leesa Reviewer: [id number] Jessi Troy Notice Issued Date-Time: 12/01/2018 16:15 Notice Type: Patient Choice Letter Notice Delivered To: Family Member Relationship to Patient: Spouse Carton Packaging Machine Operator Name: ROB Delivery Method: - Tita Days: Prior Verbal Notification: Recipient Understood Notice: Recipient Signature: Med Rec Note Co-signed by Attending: Coverage Notice Comment: Reviewer: [id number] Jessi Troy Notice Issued Date-Time: 12/02/2018 13:40 Notice Type: IM Discharge Notice Notice Delivered To: Family Member Relationship to Patient: Spouse Carton Packaging Machine Operator Name: rob Delivery Method: HAND - Hand Delivered Tita Days: Prior Verbal Notification: Recipient Understood Notice: Yes Recipient Signature: Yes Med Rec Note Co-signed by Attending: Coverage Notice Comment: Last DP export: 12/02/18 1:00 pm Patient Name: HELDER MACHCUA Page [phone] at 1136 All edits/amendments must be made on the electronic document DICTATION DATE: 12/06/18 1135 ANIMAL NURSERY WORKER: ARACELIS 12/06/18 1135 RPT#: [id number] DC DATE:12/02/18 STATUS: DIS IN [facility] [id number] [place] [address] END OF REPORT
== END 2018-12-02 14:53 | disposition home health service (06) | DRG 834 ==
LOC: D.ER 12:15 → D.MS 15:49
PROVIDERS: Emergency Medicine; Family Medicine; General Practice; Internal Medicine Hematology & Oncology; ADMIT Family Medicine; ATTEND Family Medicine
PROC: 07DR3ZX Extraction of Iliac Bone Marrow, Percutaneous Approach, Diagnostic (ICD-10-PCS; principal; 2018-11-29 10:38)
DX: C92.00 Acute myeloblastic leukemia, not having achieved remission (principal); J96.01 Acute respiratory failure with hypoxia; N17.9 Acute kidney failure, unspecified; D69.6 Thrombocytopenia, unspecified; D53.9 Nutritional anemia, unspecified; D49.2 Neoplasm of unspecified behavior of bone, soft tissue, and skin